=== PATIENT | male | born 1955 | race American Indian/Alaskan Native ===

== ENCOUNTER 2017-09-13 15:08 | Outpatient (CLI) | payer OTHER ==
--- NOTE | 2017-09-13 16:24 | XRay Report ---
XRAY RIGHT ANKLE THREE VIEWS: 09/13/17 15:08:00 CLINICAL: Pain. FINDINGS: The ankle mortise is intact.No fracture or dislocation. Moderate medial and lateral soft tissue swelling. No soft tissue air or foreign body. A small calcaneal plantar enthesophyte. IMPRESSION: Nonspecific soft tissue edema. Plantar enthesopathy.
== END 2017-09-13 15:09 | disposition home or self-care (01) ==
LOC: SPVIMAG 15:08
PROVIDERS: ATTEND Orthopaedic Surgery
DX: M77.31 Calcaneal spur, right foot (principal)